=== PATIENT | male | born 1950 | race Caucasian/White ===

== ENCOUNTER 2022-07-13 13:09 | Inpatient (IN) ==
--- NOTE | 2022-07-13 13:18 | Emergency Department Note ---
HPI General Chief complaint: Weakness Stated complaint: Fall/Weakness Time Seen by Provider: 07/13/22 13:18 History of Present Illness HPI Narrative: Narrative: Patient is a 72-year-old male with no significant past medical history who presents to the emergency department due to worsening weakness. He states that for 3 days he has had runny nose and cough. His cough has been productive. He has developed some shortness of breath as well today. He states that this morning he began to feel very weak, and tried to sit down on the chair in his countertop. He states that he had a slow controlled fall. He denies pain in any location at this time. He states that he was on the floor for at least 3 hours before he could get a hold of EMS. He endorses decreased frequency of urination. He denies any other symptoms at this time. Related Data Home Medications Medication Instructions Recorded Confirmed cyclosporine 0.05 % eye drops in a 1 drp ophthalmic (eye) DAILY 07/10/21 07/14/22 dropperette (Restasis) Previous Rx's Medication Instructions Recorded tamsulosin 0.4 mg capsule 0.4 mg PO QDAY #30 caps 03/10/22 rizatriptan 10 mg disintegrating 10 mg PO .COMPLEX #12 tabs 03/29/22 tablet Allergies Allergy/AdvReac Type Severity Reaction Status Date / Time etodolac [From Lodine] Allergy Mild Rash Verified 07/14/22 06:47 crab Allergy Unknown Unknown Verified 07/13/22 13:23 iodine Allergy Unknown Unknown Verified 07/13/22 13:23 fluticasone [From Flonase] AdvReac Mild Flushing Verified 07/14/22 06:47 propranolol [From Inderal LA] AdvReac Mild Dizziness Verified 07/14/22 06:47 Review of Systems ROS ROS Narrative: Narrative: Constitutional: Reports weakness (Generalized); Denies fever Eyes: Denies eye pain or vision change ENT ED: Reports rhinorrhea; Denies throat pain or hearing loss Cardiovascular: Denies chest pain, dyspnea on exertion, orthopnea or edema Respiratory: Reports shortness of breath and cough Gastrointestinal: Denies abdominal pain, nausea, vomiting, diarrhea, constipation, hematochezia or melena Genitourinary: Denies dysuria, frequency or hematuria Musculoskeletal: Denies back pain or myalgia Integumentary: Denies rash or lesions Neurological: Reports weakness (Generalized); Denies headache, numbness, confusion, abnormal gait or dizziness Endocrine: Denies fatigue or polyuria Hematological/Lymphatic: Denies easy bleeding or easy bruising [facility] Narrative Patient History Narrative: Narrative: Medical/Surgical/Family History All Active Problems (Updated 07/22/22 @ 07:44 by Pelon Tapia MD) Rhabdomyolysis (Acute) Weakness (Acute) COVID-19 (Acute) Rhabdomyolysis (Acute) COVID-19 (Acute) Hearing loss (Chronic) Medicare annual wellness visit, subsequent (Acute) Left lateral epicondylitis (Acute) Osteoarthritis (Chronic) Encounter for Health Maintenance Examination in Adult (Chronic) H/O colonoscopy (Chronic 04/26/14) History of tobacco use (Chronic 05/06/14) Chronic rhinitis (Chronic) Primary generalized (osteo)arthritis (Chronic) Common migraine (Chronic) Low back pain (Chronic) History of colonic polyps (Chronic 04/26/14) Cardiac dysrhythmia (Chronic) Medical History Cardiac dysrhythmia At 09/2007 CPX, resting EKG--slight ST depression & inverted T-wave in limb lead 3. Limb lead 2 and AVF normal; incomplete RBBB. ETT 12/14/07--ENRIKE -10%. No definite ST changes--read as normal standard ETT. 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 Encounter for Health Maintenance Examination in Adult Hearing loss History of colonic polyps (04/26/14) 04/26/2014-TA; 09/2005 Colonoscopy--Dr. Patel--adenomatous polyp. Plan recheck at 2010 5 yr. point History of tobacco use (05/06/14) Low back pain on background of previous lumbar comp fx--see CPX for hx; Traumatic L2 compression fracture 01/1995. Review by Dr. Esposito 11/2006. 12/2010--Acute onset lower thoracic, upper lumbar pack pain--still off work as of 02/2011. Medicare annual wellness visit, initial Medicare annual wellness visit, subsequent Osteoarthritis Primary generalized (osteo)arthritis 04/2004 Left knee pain, x-ray showing mild osteoaarthritis Retinal detachment 2020, previous repairs as well. Surgical History H/O colonoscopy (04/26/14) 07/04/19 - (2) TA 04/26/2014 - TA H/O eye surgery retinal detachment 2018 and 2020 laser surgery 2012 Family History Father Dementia, Onset Age: 79 Heart failure Acute myocardial infarction, Onset Age: 71 Disorder of thyroid Sister Hodgkin lymphoma Mother Dementia Social History Smoking Status: Former smoker Alcohol Intake Frequency: a few times a week Substance Use: does not use Exam Narrative Narrative: Narrative: General General appearance: Present alert and in no apparent distress; Absent anxious, appears intoxicated or sleepy Head Head: Present atraumatic and normocephalic Eye Eye: Present PERRL and EOMI; Absent scleral icterus or nystagmus ENT ENT: Present mucous membranes moist and nasal congestion Neck Neck: Present full ROM and trachea midline Chest Chest: Present normal inspection and symmetric chest wall rise Respiratory Respiratory: Present normal lung sounds bilaterally; Absent respiratory distress or accessory muscle use Cardiovascular Cardiovascular: Present regular rate, normal rhythm and normal heart sounds Adbominal Abdominal: Present soft and normal bowel sounds; Absent distention or tenderness Extremities Extremities: Present normal inspection and full ROM Back Back: Present normal inspection and full ROM Neurological Neurological: Present alert, oriented X3, CN II-XII intact, normal gait and reflexes normal; Absent motor sensory deficit Psychiatric Psychiatric: Present normal affect and normal mood Skin Skin: Present warm (WNL), dry and normal color Course Vital Signs Vital signs: Vital Signs Temperature 99.9 F H 07/13/22 13:10 Pulse Rate 103 H 07/13/22 13:10 Respiratory Rate 22 07/13/22 13:10 Blood Pressure 145/101 07/13/22 13:10 Pulse Oximetry (%) 93 07/13/22 13:10 Oxygen Delivery Method Room Air 07/13/22 13:10 Temperature 98.1 F 07/20/22 13:45 Pulse Rate 87 07/20/22 13:45 Respiratory Rate 18 07/20/22 13:45 Blood Pressure 119/74 07/20/22 13:45 Pulse Oximetry (%) 90 07/20/22 13:45 Oxygen Delivery Method Room Air 07/20/22 13:45 Oxygen Flow Rate (L/min) 0 07/20/22 13:45 MDM MDM Narrative Medical decision making narrative: Narrative: Patient is a 72-year-old male with no significant past medical history who presents to the emergency department due to worsening weakness. Differential diagnoses for patient's weakness include his known covid, uti, electrolyte abnormality, anemia, and dehydrations. There is some concern for rhabdomyolysis also due to length of time that patient was on the ground. Patient is beginning to feel better with fluids. Patient's kidney function is reassuring. Electrolytes are reassuring. CK is elevated at 8924. I have called and spoken to Dr. Suárez given concern for rhabdomyolysis and he has agreed to see and evaluate patient for admission. Lab Data 07/16/22 06:21 07/18/22 10:25 Labs: Lab Results 07/13/22 07/13/22 07/13/22 Range/Units 14:42 14:42 14:46 WBC 10.8 (4.5-11.0) K/mcL RBC 5.01 (4.63-6.08) M/mcL Hgb 14.9 (13.7-17.5) g/dL Hct 44.5 (40.1-51.0) % POC Hct 44.0 (41-55) MCV 88.8 (80.0-100.0) fL MCH 29.7 (26.0-34.0) pg MCHC 33.5 (31.0-36.0) g/dL RDW 13.4 (11.5-14.5) % Plt Count 180 (140-440) K/mcL MPV 9.3 (8.8-12.5) fL Immature Gran % (Auto) 0.5 (0.0-0.5) % Neut % (Auto) 83.3 H (38.0-78.0) % Lymph % (Auto) 4.6 L (15.5-49.0) % [place] % (Auto) 11.3 (1.0-12.0) % Eos % (Auto) 0 (0.0-7.0) % Baso % (Auto) 0.3 (0.0-2.0) % Lymph # (Auto) 0.50 L (1.50-4.80) K/mcL [place] # (Auto) 1.23 H (0.10-0.90) K/mcL Eos # (Auto) 0 (0.00-0.70) K/mcL Baso # (Auto) 0.03 (0.00-0.30) K/mcL Immature Gran # 0.05 (0.00-0.05) K/mcl Absolute Neutrophils 9.03 H (1.80-8.00) K/mcL POC Sodium 137 (133-145) POC Potassium 3.7 (3.3-5.1) POC Chloride 106 (96-108) POC Total CO2 21.0 L (22-30) POC BUN 11 (6-20) POC Creatinine 1.0 (0.6-1.2) POC Glucose 115 H (70-105) POC WB Ioniz Calcium 1.05 L (1.16-1.32) Total Creatine Kinase 8924 H (24-195) U/L ED POC Tests ED POC Tests: SARAHY - Influenza A Negative SARAHY - Influenza B Negative SARAHY - SARS Antigen Positive Discharge Plan Patient/Caregiver Discharge Instructions Pt seen by RADIATION ONCOLOGY NURSE/PA only: No Clinical Impression: Rhabdomyolysis, Weakness, COVID-19 Activity: increase activity as tolerated Patient Disposition: Xfer As Inpt ([facility]) Condition: Fair Discharge Date/Time: 07/13/22 20:52
[2022-07-13] MEDS ORDERED: 0.9 % SODIUM CHLORIDE 500 ML IV ONE ×2 (13:46→14:51)
[2022-07-13 14:49] LABS: POC Calcium, Ionized 1.05 (1.16-1.32); POC Potassium 3.7 (3.3-5.1)
[2022-07-13 15:40] LABS: Basophils # (Auto) 0.03 K/mcL (0.00-0.30); Basophils % (Auto) 0.3 % (0.0-2.0); Eosinophils # (Auto) 0 K/mcL (0.00-0.70); Eosinophils % (Auto) 0 % (0.0-7.0); Hematocrit 44.5 % (40.1-51.0); Hemoglobin 14.9 g/dL (13.7-17.5); Lymphocytes % (Auto) 4.6 % (15.5-49.0); Mean Cell Volume 88.8 fL (80.0-100.0); Mean Corpuscular HGB Conc 33.5 g/dL (31.0-36.0); Mean Platelet Volume 9.3 fL (8.8-12.5); Monocytes # (Auto) 1.23 K/mcL (0.10-0.90); Monocytes % (Auto) 11.3 % (1.0-12.0); Neutrophils % (Auto) 83.3 % (38.0-78.0); Platelet Count 180 K/mcL (140-440); RBC 5.01 M/mcL (4.63-6.08); Red Cell Distribution Width 13.4 % (11.5-14.5); WBC 10.8 K/mcL (4.5-11.0)
[2022-07-13 16:06] LABS: Creatine Kinase 8924 U/L (24-195)
[2022-07-13] MEDS ORDERED: LACTATED RINGERS 1,000 ML IV ONE (16:11)
[2022-07-13] MEDS ORDERED: ACETAMINOPHEN 500 MG TABLET PO ONE (18:24)
--- NOTE | 2022-07-13 18:33 | Internal Med History&Physical ---
HPI History of Present Illness Patient information: Note initiated : 07/13/22 at 6:31 pm Service Date, if different from initiated Date: [] Patient: Ottoniel Arriaga 72 y/o M admitted on for Fall/Weakness. Chief Complaint: [] Chief complaint: found down History of present illness: Mr. Arriaga is a 72 year old M with BPPV. He arose early on the morning of the day of admission and attempted to sit in a kitchen chair but fell out of the chair. He attempted to get back in the chair and repeatedly fell off. He also reports a sore throat. He remained on the floor for several hours. Workup in the ER was notable for CPK 8,000. Renal function normal. However, COVID is POSITIVE. He is too weak to care for himself and lives alone. Admission was requested. Constitutional Constitutional: Present as per HPI EENT Eyes: Present as per HPI Cardiovascular Cardiovascular: Present as per HPI Respiratory Respiratory: Present as per HPI Gastrointestinal Gastrointestinal: Present as per HPI Genitourinary Genitourinary: as per HPI Musculoskeletal Musculoskeletal: Present as per HPI Integumentary Integumentary: Present as per HPI Neurological Neurological: Present as per HPI Endocrine Endocrine: Present as per HPI PFSH PFSH All Active Problems (Updated 07/13/22 @ 18:37 by Jam Suárez MD) Rhabdomyolysis (Acute) COVID-19 (Acute) Hearing loss (Chronic) Medicare annual wellness visit, subsequent (Acute) Left lateral epicondylitis (Acute) Osteoarthritis (Chronic) Encounter for Health Maintenance Examination in Adult (Chronic) H/O colonoscopy (Chronic 04/26/14) History of tobacco use (Chronic 05/06/14) Chronic rhinitis (Chronic) Primary generalized (osteo)arthritis (Chronic) Common migraine (Chronic) Low back pain (Chronic) History of colonic polyps (Chronic 04/26/14) Cardiac dysrhythmia (Chronic) Medical History Cardiac dysrhythmia At 09/2007 CPX, resting EKG--slight ST depression & inverted T-wave in limb lead 3. Limb lead 2 and AVF normal; incomplete RBBB. ETT 12/14/07--ENRIKE -10%. No definite ST changes--read as normal standard ETT. 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 Encounter for Health Maintenance Examination in Adult Hearing loss History of colonic polyps (04/26/14) 04/26/2014-TA; 09/2005 Colonoscopy--Dr. Patel--adenomatous polyp. Plan recheck at 2010 5 yr. point History of tobacco use (05/06/14) Low back pain on background of previous lumbar comp fx--see Feb. CPX for hx; Traumatic L2 compression fracture 01/1995. Review by Dr. Esposito 11/2006. 12/2010--Acute onset lower thoracic, upper lumbar pack pain--still off work as of 02/2011. Medicare annual wellness visit, initial Medicare annual wellness visit, subsequent Osteoarthritis Primary generalized (osteo)arthritis 04/2004 Left knee pain, x-ray showing mild osteoaarthritis Retinal detachment 2020, previous repairs as well. Surgical History H/O colonoscopy (04/26/14) 07/04/19 - (2) TA 04/26/2014 - TA H/O eye surgery retinal detachment 2018 and 2020 laser surgery 2012 Family History Father Dementia, Onset Age: 79 Heart failure Acute myocardial infarction, Onset Age: 71 Disorder of thyroid Sister Hodgkin lymphoma Mother Dementia Social History household members: alone housing: house lives independently: Yes marital status: occupational status: retired smoking status: Former smoker quit date: 05/16/08 alcohol intake frequency: a few times a week substance use type: does not use MEDS/ALLERGIES Home Medications and Allergies Home Medications Medication Instructions Recorded Confirmed Type cyclosporine 0.05 % eye drops in a drp ophthalmic (eye) 07/10/21 04/21/22 History dropperette (Restasis) tamsulosin 0.4 mg capsule 0.4 mg PO QDAY #30 caps 03/10/22 04/21/22 Rx rizatriptan 10 mg disintegrating 10 mg PO .COMPLEX #12 tabs 03/29/22 04/21/22 Rx tablet atorvastatin 20 mg tablet 20 mg PO QDAY #90 tabs 04/12/22 04/21/22 Rx Allergies Allergy/AdvReac Type Severity Reaction Status Date / Time crab Allergy Unknown Unknown Verified 07/13/22 13:23 etodolac [From Lodine] Allergy Unknown Rash Verified 07/13/22 13:23 iodine Allergy Unknown Unknown Verified 07/13/22 13:23 fluticasone [From Flonase] AdvReac Unknown Flushing Verified 07/13/22 13:23 propranolol [From Inderal LA] AdvReac Unknown Dizziness Verified 07/13/22 13:23 EXAM Constitutional Vitals: Temp Pulse Resp BP Pulse Ox O2 Del Method 102.6 F H 91 H 25 H 148/84 91 Room Air 07/13/22 17:56 07/13/22 18:16 07/13/22 18:16 07/13/22 18:16 07/13/22 18:16 07/13/22 13:10 General appearance: no acute distress Head Head exam: Present atraumatic, normal inspection and normocephalic ENT ENT exam: Present mucous membranes moist Respiratory Respiratory exam: Present normal respiratory exam and CTAB GI/Abdominal GI/Abdominal exam: Present normal bowel sounds and soft; Absent distended Extremities Exam Extremities exam: Absent pedal edema DATA Data Completed and Pending Labs: Labs from last 24 hours 07/13/22 07/13/22 07/13/22 14:46 14:42 14:42 WBC 10.8 RBC 5.01 Hgb 14.9 Hct 44.5 POC Hct 44.0 MCV 88.8 MCH 29.7 MCHC 33.5 RDW 13.4 Plt Count 180 MPV 9.3 Immature Gran % (Auto) 0.5 Neut % (Auto) 83.3 H Lymph % (Auto) 4.6 L [place] % (Auto) 11.3 Eos % (Auto) 0 Baso % (Auto) 0.3 Lymph # (Auto) 0.50 L [place] # (Auto) 1.23 H Eos # (Auto) 0 Baso # (Auto) 0.03 Immature Gran # 0.05 Absolute Neutrophils 9.03 H POC Sodium 137 POC Potassium 3.7 POC Chloride 106 POC Total CO2 21.0 L POC BUN 11 POC Creatinine 1.0 POC Glucose 115 H POC WB Ioniz Calcium 1.05 L Total Creatine Kinase 8924 H A/P Assessment and plan (1) COVID-19: Assessment and plan: - supportive care - patient unable to care for self Status: Acute (2) Rhabdomyolysis: Assessment and plan: - moderate CPK elevation with normal renal function - hydrate - hold statin Status: Acute Time Spent With Patient Time: Total time spent is greater than 50% in coordination of care (as documented) at patient's floor/unit and/or counseling patient: Initial: Total time with patient: 40 - 54 minutes
[2022-07-13] MEDS ORDERED: ONDANSETRON 4 MG/2 ML VIAL IV PRN (20:56)
[2022-07-13] MEDS: DOCUSATE SODIUM 100 MG CAPSULE PO SCH (22:37)
[2022-07-13] MEDS: SENNOSIDES 1 TABLET PO SCH (22:37)
[2022-07-13] MEDS: 0.9 % SODIUM CHLORIDE 10 ML SYRINGE IV SCH (22:38)
[2022-07-13] MEDS: 0.9 % SODIUM CHLORIDE 1,000 ML IV SCH (22:40)
[2022-07-14] MEDS: ACETAMINOPHEN 325 MG TABLET PO PRN ×2 (04:34→13:14)
[2022-07-14] MEDS: 0.9 % SODIUM CHLORIDE 10 ML SYRINGE IV SCH ×3 (05:50→21:35)
[2022-07-14] MEDS: TAMSULOSIN 0.4 MG CAPSULE PO SCH (08:02)
[2022-07-14] MEDS: ENOXAPARIN 40 MG/0.4 ML SYRINGE SQ SCH (08:02)
[2022-07-14] MEDS: DOCUSATE SODIUM 100 MG CAPSULE PO SCH ×2 (08:02→20:34)
[2022-07-14 08:03] LABS: Blood Urea Nitrogen 11 mg/dL (8-23); Calcium 8.2 mg/dL (8.6-10.4); Carbon Dioxide 20 mmol/L (22-30); Chloride 105 mmol/L (96-108); Glomerular Filtration Rate 88; Glucose 96 mg/dL (70-105); Phosphorous 1.8 mg/dL (2.5-4.5)
[2022-07-14 08:10] LABS: Basophils # (Auto) 0.03 K/mcL (0.00-0.30); Basophils % (Auto) 0.3 % (0.0-2.0); Eosinophils # (Auto) 0.02 K/mcL (0.00-0.70); Eosinophils % (Auto) 0.2 % (0.0-7.0); Hematocrit 43.4 % (40.1-51.0); Hemoglobin 14.2 g/dL (13.7-17.5); Lymphocytes # (Auto) 1.49 K/mcL (1.50-4.80); Lymphocytes % (Auto) 14.8 % (15.5-49.0); Mean Cell Volume 88.9 fL (80.0-100.0); Mean Corpuscular HGB Conc 32.7 g/dL (31.0-36.0); Mean Platelet Volume 9.3 fL (8.8-12.5); Monocytes # (Auto) 1.59 K/mcL (0.10-0.90); Monocytes % (Auto) 15.8 % (1.0-12.0); Neutrophils % (Auto) 68.6 % (38.0-78.0); Platelet Count 186 K/mcL (140-440); RBC 4.88 M/mcL (4.63-6.08); Red Cell Distribution Width 13.7 % (11.5-14.5); WBC 10.1 K/mcL (4.5-11.0)
[2022-07-14] MEDS: 0.9 % SODIUM CHLORIDE 1,000 ML IV SCH ×4 (08:11→21:52)
[2022-07-14 10:49] LABS: Creatine Kinase > 20000 U/L (24-195)
--- NOTE | 2022-07-14 11:05 | Internal Med Progress Note ---
SUBJECTIVE Subjective Patient information: Note initiated : 07/14/22 at 11:02 am Service Date, if different from initiated Date: [] Patient: Ottoniel Arriaga 72 y/o M admitted on 07/13/22 for Fall/Weakness. Chief Complaint: [] Interval history: Mr. Arriaga is a 72 year old M with BPPV. He arose early on the morning of the day of admission and attempted to sit in a kitchen chair but fell out of the chair. He attempted to get back in the chair and repeatedly fell off. He also reports a sore throat. He remained on the floor for several hours. Workup in the ER was notable for CPK 8,000. Renal function normal. However, COVID is POSITIVE. He is too weak to care for himself and lives alone. Admission was requested. Jul 14, CPK reported as > 20,000. I have asked for a dilution measure to better quantify the actual number. IVF rate has been increased. Pt denies limb pain or numbness. Constitutional Vitals: Vital Signs Temp Pulse Resp BP Pulse Ox O2 Del Method 98.9 F 73 18 118/82 92 Room Air 07/14/22 08:00 07/14/22 08:00 07/14/22 08:00 07/14/22 08:00 07/14/22 08:00 07/14/22 08:00 Period Temp Pulse Resp BP Sys/Allen Pulse Ox O2 Del Method O2 Flow Rate Last 24 Hr 98.1 F-102.6 F 73-103 17-33 112-167/70-103 90-96 Room Air-Room Air Intake and Output 07/13/22 07/14/22 07/14/22 19:59 03:59 11:59 Intake Total 700 1000 1912 Output Total 925 750 Balance 514 89 0153 Weight 104.326 kg 106.651 kg Intake & Output: Intake & Output 07/13/22 07/14/22 07/14/22 19:59 03:59 11:59 Intake Total 700 1000 1912 Output Total 925 750 Balance 478 26 6403 Weight 104.326 kg 106.651 kg Intake: IV 700 1000 952 Sodium Chloride 0.9% 1,000 ml @ 952 100 mls/hr IV .Q10H [facility] Rx#: [id number] Sodium Chloride 0.9% 500 ml @ 700 Wide Open IV BOLUS ONE Rx#: [id number] Lactated Ringers 1,000 ml @ 1000 Wide Open IV BOLUS ONE Rx#: [id number] Oral 960 Output: Void Amount 925 750 Other: Meal Breakfast Percent of Meal Consumed 75% Feeding Ability Assist with Tray Set Up Urine Appearance Clear Clear Urine Color Yellow Yellow Urine Odor Normal Normal General appearance: no acute distress Head Head exam: Present atraumatic and normal inspection ENT ENT exam: Present mucous membranes moist Respiratory Respiratory exam: Present normal respiratory exam and CTAB Cardiovascular Cardiovascular exam: Present normal rate and rhythm GI/Abdominal GI/Abdominal exam: Present normal bowel sounds and soft Neurological Exam Neurological exam: Present CN II-XII intact and oriented X3 OBJ DATA Labs 07/14/22 05:12 07/14/22 05:12 Labs: Abnormal Lab Results 07/14/22 07/14/22 07/13/22 05:12 05:12 14:46 Neut % (Auto) Lymph % (Auto) 14.8 L [place] % (Auto) 15.8 H Lymph # (Auto) 1.49 L [place] # (Auto) 1.59 H Absolute Neutrophils Carbon Dioxide 20 L POC Total CO2 21.0 L POC Glucose 115 H Calcium 8.2 L POC WB Ioniz Calcium 1.05 L Phosphorus 1.8 L Total Creatine Kinase > 68017 H* 07/13/22 07/13/22 14:42 14:42 Neut % (Auto) 83.3 H Lymph % (Auto) 4.6 L [place] % (Auto) Lymph # (Auto) 0.50 L [place] # (Auto) 1.23 H Absolute Neutrophils 9.03 H Carbon Dioxide POC Total CO2 POC Glucose Calcium POC WB Ioniz Calcium Phosphorus Total Creatine Kinase 8924 H Meds: Medications Acetaminophen (Acetaminophen 325 Mg Tablet) 650 mg PO Q6HP PRN; Protocol PRN Reason: Per Pain Protocol/Fever > 101 Last Admin: 07/14/22 04:34 Dose: 650 mg Docusate Sodium (Docusate Sodium 100 Mg Capsule) 100 mg PO BID [facility] Last Admin: 07/14/22 08:02 Dose: 100 mg Enoxaparin Sodium (Enoxaparin 40 Mg/0.4 Ml Syringe) 40 mg SQ DAILY [facility] Last Admin: 07/14/22 08:02 Dose: 40 mg Sodium Chloride (Sodium Chloride 0.9%) 1,000 mls @ 166 mls/hr IV .Q6H2M [facility] Ondansetron HCl (Ondansetron 4 Mg/2 Ml Vial) 4 mg IV Q6HP PRN PRN Reason: Nausea And Vomiting Potassium/Phosphorus/Sodium (Neutra Phos 1 Packet) 1 packet PO QID [facility] Stop: 07/15/22 13:01 Senna (Sennosides 1 Tablet) 2 tab PO HS [facility] Last Admin: 07/13/22 22:37 Dose: 2 tab Sodium Chloride (0.9 % Sodium Chloride 10 Ml Syringe) 10 ml IV Q8 [facility] Last Admin: 07/14/22 05:50 Dose: Not Given Tamsulosin HCl (Tamsulosin 0.4 Mg Capsule) 0.4 mg PO QDAY [facility] Last Admin: 07/14/22 08:02 Dose: 0.4 mg A/P Assessment and plan (1) COVID-19: Assessment and plan: - supportive care - pt unable to care for self, lives alone Status: Acute (2) Rhabdomyolysis: Assessment and plan: - repat CPK this AM is > 20,000 vs 8,000 last night - I have asked the lab to perform a dilution to further quantify - increase IVF rate - renal function normal Status: Acute Time Spent With Patient Time: Total time spent is greater than 50% in coordination of care (as documented) at patient's floor/unit and/or counseling patient: QUALITY Stroke Symptom Onset Unknown: No VTE Deep Vein Thrombosis/Pulmonary Embolism Present on Admission: No
[2022-07-14] MEDS: NEUTRA PHOS 1 PACKET PO SCH ×4 (11:19→20:34)
--- NOTE | 2022-07-14 14:23 | Internal Med Progress Note ---
SUBJECTIVE Subjective Patient information: Note initiated : 07/14/22 at 2:15 pm Service Date, if different from initiated Date: [] Patient: Ottoniel Arriaga 72 y/o M admitted on 07/13/22 for Fall/Weakness. Chief Complaint: [] Interval history: Mr. Arriaga is a 72 year old M with BPPV. He arose early on the morning of the day of admission and attempted to sit in a kitchen chair but fell out of the chair. He attempted to get back in the chair and repeatedly fell off. He also reports a sore throat. He remained on the floor for several hours. Workup in the ER was notable for CPK 8,000. Renal function normal. However, COVID is POSITIVE. He is too weak to care for himself and lives alone. Admission was requested. Jul 14, CPK reported as > 20,000. I have asked for a dilution measure to better quantify the actual number. IVF rate has been increased. Pt denies limb pain or numbness. 3/2 Review of Systems: denies headache/fever/chills/nausea/vomiting/chest or abdominal pain/cough/dyspnea/diarrhea. Otherwise see above. PHYSICAL EXAM: General: Alert, Awake, No acute Distress, obese Eyes/N/T: EOMI, no scleral icterus, Head/Neck: neck supple, CV: RRR, No murmurs, Pulm: Clear b/l, no wheezing/rhonchi/rales, no respiratory distress Abd: soft, nontender, +BS x4 Ext: no clubbing/cyanosis/edema, nontender Neuro: Alert, no focal deficits, moves all extremities, sensations intact b/l upper/lower Psychiatric: Skin: warm/dry, normal color Constitutional Vitals: Vital Signs Temp Pulse Resp BP Pulse Ox O2 Del Method 99.0 F 80 18 128/78 93 Room Air 07/14/22 11:23 07/14/22 11:23 07/14/22 11:23 07/14/22 11:23 07/14/22 11:23 07/14/22 11:23 Period Temp Pulse Resp BP Sys/Allen Pulse Ox O2 Del Method O2 Flow Rate Last 24 Hr 98.1 F-102.6 F 73-102 17-33 112-164/70-103 90-96 Room Air-Room Air Intake and Output 07/14/22 07/14/22 07/14/22 03:59 11:59 19:59 Intake Total 1000 2204 570 Output Total 925 750 Balance 75 1454 570 Weight 106.651 kg 106.651 kg Patient Weight 07/15/22 03:59 Weight 106.651 kg Intake & Output: Intake & Output 07/14/22 07/14/22 07/14/22 03:59 11:59 19:59 Intake Total 1000 2204 570 Output Total 925 750 Balance 75 1454 570 Weight 106.651 kg 106.651 kg Intake: IV 1000 1244 Sodium Chloride 0.9% 1,000 ml @ 1244 100 mls/hr IV .Q10H [facility] Rx#: [id number] Lactated Ringers 1,000 ml @ 1000 Wide Open IV [facility] Rx#: [id number] Oral 960 570 Output: Void Amount 925 750 Other: Meal Breakfast Lunch Percent of Meal Consumed 75% 100% Feeding Ability Assist with Tray Set Up Independent Urine Appearance Clear Clear Urine Color Yellow Yellow Urine Odor Normal Normal Stool Size Moderate Stool Color Brown Yellow Stool Consistency Loose # Voids 1 # Bowel Movements 1 OBJ DATA Labs 07/14/22 05:12 07/14/22 05:12 Labs: Abnormal Lab Results 07/14/22 07/14/22 07/13/22 05:12 05:12 14:46 Neut % (Auto) Lymph % (Auto) 14.8 L [place] % (Auto) 15.8 H Lymph # (Auto) 1.49 L [place] # (Auto) 1.59 H Absolute Neutrophils Carbon Dioxide 20 L POC Total CO2 21.0 L POC Glucose 115 H Calcium 8.2 L POC WB Ioniz Calcium 1.05 L Phosphorus 1.8 L Total Creatine Kinase > 57993 H* 07/13/22 07/13/22 14:42 14:42 Neut % (Auto) 83.3 H Lymph % (Auto) 4.6 L [place] % (Auto) Lymph # (Auto) 0.50 L [place] # (Auto) 1.23 H Absolute Neutrophils 9.03 H Carbon Dioxide POC Total CO2 POC Glucose Calcium POC WB Ioniz Calcium Phosphorus Total Creatine Kinase 8924 H Meds: Medications Acetaminophen (Acetaminophen 325 Mg Tablet) 650 mg PO Q6HP PRN; Protocol PRN Reason: Per Pain Protocol/Fever > 101 Last Admin: 07/14/22 13:14 Dose: 650 mg Docusate Sodium (Docusate Sodium 100 Mg Capsule) 100 mg PO BID [facility] Last Admin: 07/14/22 08:02 Dose: 100 mg Enoxaparin Sodium (Enoxaparin 40 Mg/0.4 Ml Syringe) 40 mg SQ DAILY [facility] Last Admin: 07/14/22 08:02 Dose: 40 mg Sodium Chloride (Sodium Chloride 0.9%) 1,000 mls @ 166 mls/hr IV .Q6H2M [facility] Last Admin: 07/14/22 11:07 Dose: Not Given Ondansetron HCl (Ondansetron 4 Mg/2 Ml Vial) 4 mg IV Q6HP PRN PRN Reason: Nausea And Vomiting Potassium/Phosphorus/Sodium (Neutra Phos 1 Packet) 1 packet PO QID [facility] Stop: 07/15/22 13:01 Last Admin: 07/14/22 12:31 Dose: Not Given Senna (Sennosides 1 Tablet) 2 tab PO HS [facility] Last Admin: 07/13/22 22:37 Dose: 2 tab Sodium Chloride (0.9 % Sodium Chloride 10 Ml Syringe) 10 ml IV Q8 [facility] Last Admin: 07/14/22 05:50 Dose: Not Given Tamsulosin HCl (Tamsulosin 0.4 Mg Capsule) 0.4 mg PO QDAY [facility] Last Admin: 07/14/22 08:02 Dose: 0.4 mg A/P Narrative A/P Narrative: Assessment and plan *COVID-19: on room air - supportive care - pt unable to care for self, lives alone *Rhabdomyolysis: - repat CPK this AM is > 20,000 vs 8,000 last night - I have asked the lab to perform a dilution to further quantify >>(36,200) - increase IVF rate - renal function normal -bicarb to alkalize the urine *Hypophosphatemia: Replete *Obese: BMI 31 *Generalized weakness/deconditioning: PT/OT *HLD: On statin *BPH: Continue tamsulosin *ppx: Time Spent With Patient Time: Total time spent is greater than 50% in coordination of care (as documented) at patient's floor/unit and/or counseling patient: QUALITY Stroke Symptom Onset Unknown: No VTE Deep Vein Thrombosis/Pulmonary Embolism Present on Admission: No
[2022-07-14] MEDS: SODIUM BICARBONATE 650 MG TABLET PO SCH ×2 (15:46→20:34)
[2022-07-14] MEDS: SENNOSIDES 1 TABLET PO SCH (20:34)
[2022-07-15] MEDS: ACETAMINOPHEN 325 MG TABLET PO PRN ×2 (03:08→21:16)
[2022-07-15] MEDS: 0.9 % SODIUM CHLORIDE 1,000 ML IV SCH ×3 (03:24→17:45)
[2022-07-15] MEDS: 0.9 % SODIUM CHLORIDE 10 ML SYRINGE IV SCH ×3 (05:37→21:17)
--- NOTE | 2022-07-15 06:44 | EKG ---
[facility] Test Date: 2022-07-13 Pat Name: Ottoniel Arriaga Department: MEDR Room: 125 Gender: Male Group [employer] Machine: HS : [id number] Requested By: Pelon Tapia Order Number: [id number] Reading MD: Gilbert Lujan Measurements Intervals [place] Rate: 102 P: 49 [place]: 157 QRS: 18 QRSD: 103 T: 8 QT: 357 QTc: 464 Interpretive Statements Sinus tachycardia RSR' in V1 or V2, right VCD or RVH Electronically Signed On 07-15-2022 6:44:21 PST by Gilbert Lujan /store/[email or web address]/[id number]
[2022-07-15 07:51] LABS: ALT/SGPT 197 U/L (<40); AST/SGOT 759 U/L (<40); Albumin 3.3 gm/dL (3.2-5.2); Albumin/Globulin Ratio 1.3 (1.0-2.3); Alkaline Phosphatase 60 U/L (39-117); Bilirubin,Direct < 0.2 mg/dL (0-0.3); Bilirubin,Total 0.5 mg/dL (0.1-1.0); Blood Urea Nitrogen 7 mg/dL (8-23); Calcium 7.5 mg/dL (8.6-10.4); Carbon Dioxide 22 mmol/L (22-30); Chloride 106 mmol/L (96-108); Globulin 2.5 gm/dL (2.2-3.7); Glomerular Filtration Rate 93; Glucose 94 mg/dL (70-105); Lactate Dehydrogenase 1001 U/L (135-225); Phosphorous 2.1 mg/dL (2.5-4.5); Triglycerides 80 mg/dL (<150)
--- NOTE | 2022-07-15 08:10 | Internal Med Progress Note ---
SUBJECTIVE Subjective Patient information: Note initiated : 07/15/22 at 8:07 am Service Date, if different from initiated Date: [] Patient: Ottoniel Arriaga 72 y/o M admitted on 07/13/22 for Fall/Weakness. Chief Complaint: [] Interval history: Mr. Arriaga is a 72 year old M with BPPV. He arose early on the morning of the day of admission and attempted to sit in a kitchen chair but fell out of the chair. He attempted to get back in the chair and repeatedly fell off. He also reports a sore throat. He remained on the floor for several hours. Workup in the ER was notable for CPK 8,000. Renal function normal. However, COVID is POSITIVE. He is too weak to care for himself and lives alone. Admission was requested. Jul 14, CPK reported as > 20,000. I have asked for a dilution measure to better quantify the actual number. IVF rate has been increased. Pt denies limb pain or numbness. /2 Patient complains of poor sleep. Has a headache. Hypophosphatemia present. Hypocalcemia. Transaminitis #. Elevated CPK greater than 20,000. We will ask for delusional from lab. Continue IV fluids and continue monitoring close urine output. Review of Systems: denies headache/fever/chills/nausea/vomiting/chest or abdominal pain/cough/dyspnea/diarrhea. Otherwise see above. PHYSICAL EXAM: General: Alert, Awake, No acute Distress, obese Eyes/N/T: EOMI, no scleral icterus, Head/Neck: neck supple, CV: RRR, No murmurs, Pulm: Clear b/l, no wheezing/rhonchi/rales, no respiratory distress Abd: soft, nontender, +BS x4 Ext: no clubbing/cyanosis/edema, nontender Neuro: Alert, no focal deficits, moves all extremities, sensations intact b/l up per/lower Psychiatric: Skin: warm/dry, normal color Constitutional Vitals: Vital Signs Temp Pulse Resp BP Pulse Ox O2 Del Method 98.5 F 78 22 117/73 93 Room Air 07/15/22 03:53 07/15/22 02:59 07/15/22 02:59 07/15/22 02:59 07/15/22 02:59 07/15/22 02:59 Period Temp Pulse Resp BP Sys/Allen Pulse Ox O2 Del Method O2 Flow Rate Last 24 Hr 98.5 F-101.2 F 78-94 18-22 117-128/68-86 91-96 Room Air-Room Air Intake and Output 07/14/22 07/15/22 07/15/22 19:59 03:59 11:59 Intake Total 1278 2719 Output Total 200 1275 1026 Balance 1078 1444 -1026 Weight 106.651 kg 108.04 kg Intake & Output: Intake & Output 07/14/22 07/15/22 07/15/22 19:59 03:59 11:59 Intake Total 1278 2719 Output Total 200 1275 1026 Balance 1078 1444 -1026 Weight 106.651 kg 108.04 kg Intake: IV 708 1919 Sodium Chloride 0.9% 1,000 ml @ 708 1919 166 mls/hr IV .Q6H2M [facility] Rx#: [id number] Oral 570 800 Output: Void Amount 200 1275 1025 # of times incontinent of urine 1 Other: Meal Lunch Percent of Meal Consumed 100% Feeding Ability Independent Urine Appearance Clear Clear Urine Color Yellow Yellow Urine Odor Normal Stool Size Moderate Stool Color Brown Yellow Stool Consistency Loose # Voids 1 # Bowel Movements 1 OBJ DATA Labs 07/14/22 05:12 07/15/22 06:16 Labs: Abnormal Lab Results 07/15/22 07/14/22 07/14/22 06:16 05:12 05:12 Neut % (Auto) Lymph % (Auto) 14.8 L [place] % (Auto) 15.8 H Lymph # (Auto) 1.49 L [place] # (Auto) 1.59 H Absolute Neutrophils Carbon Dioxide 20 L POC Total CO2 BUN 7 L POC Glucose Calcium 7.5 L 8.2 L POC WB Ioniz Calcium Phosphorus 2.1 L 1.8 L AST 759 H ALT 197 H Lactate Dehydrogenase 1001 H Total Creatine Kinase > 66216 H* Total Protein 5.8 L 07/13/22 07/13/22 07/13/22 14:46 14:42 14:42 Neut % (Auto) 83.3 H Lymph % (Auto) 4.6 L [place] % (Auto) Lymph # (Auto) 0.50 L [place] # (Auto) 1.23 H Absolute Neutrophils 9.03 H Carbon Dioxide POC Total CO2 21.0 L BUN POC Glucose 115 H Calcium POC WB Ioniz Calcium 1.05 L Phosphorus AST ALT Lactate Dehydrogenase Total Creatine Kinase 8924 H Total Protein Meds: Medications Acetaminophen (Acetaminophen 325 Mg Tablet) 650 mg PO Q6HP PRN; Protocol PRN Reason: Per Pain Protocol/Fever > 101 Last Admin: 07/15/22 03:08 Dose: 650 mg Docusate Sodium (Docusate Sodium 100 Mg Capsule) 100 mg PO BID [facility] Last Admin: 07/14/22 20:34 Dose: Not Given Enoxaparin Sodium (Enoxaparin 40 Mg/0.4 Ml Syringe) 40 mg SQ DAILY [facility] Last Admin: 07/14/22 08:02 Dose: 40 mg Sodium Chloride (Sodium Chloride 0.9%) 1,000 mls @ 166 mls/hr IV .Q6H2M [facility] Last Admin: 07/15/22 03:24 Dose: 166 mls/hr Ondansetron HCl (Ondansetron 4 Mg/2 Ml Vial) 4 mg IV Q6HP PRN PRN Reason: Nausea And Vomiting Potassium/Phosphorus/Sodium (Neutra Phos 1 Packet) 1 packet PO QID [facility] Stop: 07/15/22 13:01 Last Admin: 07/14/22 20:34 Dose: 1 packet Senna (Sennosides 1 Tablet) 2 tab PO HS [facility] Last Admin: 07/14/22 20:34 Dose: Not Given Sodium Bicarbonate (Sodium Bicarbonate 650 Mg Tablet) 1,300 mg PO TID [facility] Last Admin: 07/14/22 20:34 Dose: 1,300 mg Sodium Chloride (0.9 % Sodium Chloride 10 Ml Syringe) 10 ml IV Q8 [facility] Last Admin: 07/15/22 05:37 Dose: Not Given Tamsulosin HCl (Tamsulosin 0.4 Mg Capsule) 0.4 mg PO QDAY [facility] Last Admin: 07/14/22 08:02 Dose: 0.4 mg A/P Narrative A/P Narrative: Assessment and plan *COVID-19: on room air - supportive care - pt unable to care for self, lives alone -febrile o/n (obtain ua) *Generalized weakness/deconditioning/downtime on floor for hours: 2/2 above -PT/OT *Rhabdomyolysis: 2/2 above -cpk 8000> 20,000 (lab to perform a dilution to further quantify >> 36,200) > 31,900 -cont IVF, bicarb to alkalize the urine - renal function normal *Metabolic acidosis: 2/2 above *Transaminitis: 2/2 rhabdomyolysis, trend *Hypophosphatemia/Hypocalcemia: Replete cautiously and trend, may have rebound with recovery *Obese: BMI 31 *HLD: On statin for elevated lfts *BPH: Continue tamsulosin *ppx: lovenox Time Spent With Patient Time: Total time spent is greater than 50% in coordination of care (as documented) at patient's floor/unit and/or counseling patient: Subsequent: Total time with patient: 50 - 65 Minutes QUALITY Stroke Symptom Onset Unknown: No VTE Deep Vein Thrombosis/Pulmonary Embolism Present on Admission: No
[2022-07-15] MEDS ORDERED: PHOSPHORUS 250 MG TABLET PO ONE (08:14)
[2022-07-15] MEDS ORDERED: CALCIUM GLUCONATE 4.65 MEQ in DEXTROSE 5% IN WATER 50 ML IV ONE (08:17)
[2022-07-15] MEDS: NEUTRA PHOS 1 PACKET PO SCH ×2 (09:48→15:25)
[2022-07-15] MEDS: TAMSULOSIN 0.4 MG CAPSULE PO SCH (09:48)
[2022-07-15] MEDS: DOCUSATE SODIUM 100 MG CAPSULE PO SCH ×3 (09:48→21:17)
[2022-07-15] MEDS: ENOXAPARIN 40 MG/0.4 ML SYRINGE SQ SCH (09:48)
[2022-07-15] MEDS: SODIUM BICARBONATE 650 MG TABLET PO SCH ×3 (09:48→21:16)
[2022-07-15] MEDS: MELATONIN 3 MG TABLET PO SCH (21:16)
[2022-07-15] MEDS: SENNOSIDES 1 TABLET PO SCH (21:17)
[2022-07-16] MEDS: 0.9 % SODIUM CHLORIDE 1,000 ML IV SCH ×4 (00:17→20:55)
[2022-07-16 00:46] LABS: Appearance,Urine CLEAR (Clear); Bilirubin,Urine Negative (Negative); Color,Urine STRAW; Culture Indicated,Urine No; Glucose,Urine (UA) Negative (Negative); Ketones,Urine Negative (Negative); Leukocyte Esterase,Urine Negative /uL (Negative); Mucus,Urine FEW /hpf; Nitrate,Urine Negative (Negative); Protein,Urine Negative (Negative); Specific Gravity,Urine 1.008 (1.000-1.035); Urine RBC < 1 /hpf (0-3); Urine Squamous Epithelial Cell 0 /hpf (0-4); Urine WBC < 1 /hpf (0-4); Urobilinogen,Urine Negative
[2022-07-16] MEDS: 0.9 % SODIUM CHLORIDE 10 ML SYRINGE IV SCH ×3 (05:21→21:01)
[2022-07-16 07:44] LABS: Basophils # (Auto) 0.04 K/mcL (0.00-0.30); Basophils % (Auto) 0.7 % (0.0-2.0); Eosinophils # (Auto) 0.22 K/mcL (0.00-0.70); Eosinophils % (Auto) 3.8 % (0.0-7.0); Hematocrit 40.9 % (40.1-51.0); Lymphocytes # (Auto) 1.99 K/mcL (1.50-4.80); Lymphocytes % (Auto) 34.1 % (15.5-49.0); Mean Cell Volume 89.1 fL (80.0-100.0); Mean Corpuscular HGB Conc 31.8 g/dL (31.0-36.0); Mean Platelet Volume 9.2 fL (8.8-12.5); Monocytes # (Auto) 0.75 K/mcL (0.10-0.90); Monocytes % (Auto) 12.8 % (1.0-12.0); Neutrophils % (Auto) 48.4 % (38.0-78.0); Platelet Count 163 K/mcL (140-440); RBC 4.59 M/mcL (4.63-6.08); Red Cell Distribution Width 13.6 % (11.5-14.5); WBC 5.8 K/mcL (4.5-11.0)
[2022-07-16 08:18] LABS: ALT/SGPT 209 U/L (<40); AST/SGOT 630 U/L (<40); Albumin 3.1 gm/dL (3.2-5.2); Albumin/Globulin Ratio 1.3 (1.0-2.3); Alkaline Phosphatase 58 U/L (39-117); Bilirubin,Direct < 0.2 mg/dL (0-0.3); Bilirubin,Total 0.4 mg/dL (0.1-1.0); Blood Urea Nitrogen 7 mg/dL (8-23); Calcium 7.7 mg/dL (8.6-10.4); Carbon Dioxide 22 mmol/L (22-30); Chloride 106 mmol/L (96-108); Globulin 2.4 gm/dL (2.2-3.7); Glomerular Filtration Rate 93; Glucose 125 mg/dL (70-105); Lactate Dehydrogenase 813 U/L (135-225); Phosphorous 1.6 mg/dL (2.5-4.5); Triglycerides 84 mg/dL (<150); Uric Acid 2.9 mg/dL (2.5-8.0)
[2022-07-16] MEDS ORDERED: CALCIUM GLUCONATE 4.65 MEQ/10 ML VIAL IV ONE (08:20)
[2022-07-16] MEDS ORDERED: POTASSIUM PHOSPHATE 40 MEQ in DEXTROSE 5% IN WATER 500 ML IV SCH (08:21)
--- NOTE | 2022-07-16 08:21 | Internal Med Progress Note ---
SUBJECTIVE Subjective Patient information: Note initiated : 07/16/22 at 8:17 am Service Date, if different from initiated Date: [] Patient: Ottoniel Arriaga 72 y/o M admitted on 07/13/22 for Fall/Weakness. Chief Complaint: [] Interval history: Mr. Arriaga is a 72 year old M with BPPV. He arose early on the morning of the day of admission and attempted to sit in a kitchen chair but fell out of the chair. He attempted to get back in the chair and repeatedly fell off. He also reports a sore throat. He remained on the floor for several hours. Workup in the ER was notable for CPK 8,000. Renal function normal. However, COVID is POSITIVE. He is too weak to care for himself and lives alone. Admission was requested. Jul 14, CPK reported as > 20,000. I have asked for a dilution measure to better quantify the actual number. IVF rate has been increased. Pt denies limb pain or numbness. 07/15 Patient complains of poor sleep. Has a headache. Hypophosphatemia present. Hypocalcemia. Transaminitis #. Elevated CPK greater than 20,000. We will ask for delusional from lab. Continue IV fluids and continue monitoring close urine output. 3 Patient says he is feeling a little stronger each day. He was severely weak the first day. His urine is also dark the first day and it is lightening up. CPK still quite elevated. Continue IV hydration and monitoring. Yesterday's CPK was 31,000 down from 36,000 the previous day. Pending today's level. Urine pH at 6.0. Patient did have fevers yesterday morning. Review of Systems: denies headache/chills/nausea/vomiting/chest or abdominal pain/cough/dyspnea/diarrhea. Otherwise see above. PHYSICAL EXAM: General: Alert, Awake, No acute Distress, obese Eyes/N/T: EOMI, no scleral icterus, Head/Neck: neck supple, CV: RRR, No murmurs, Pulm: Clear b/l, no wheezing/rhonchi/rales, no respiratory distress Abd: soft, nontender, +BS x4 Ext: no clubbing/cyanosis/edema, nontender Neuro: Alert, no focal deficits, moves all extremities, sensations intact b/l upper/lower Psychiatric: Skin: warm/dry, normal color Constitutional Vitals: Vital Signs Temp Pulse Resp BP Pulse Ox O2 Del Method 99.2 F H 71 16 125/83 93 Room Air 07/16/22 07:01 07/16/22 03:33 07/16/22 07:01 07/16/22 07:01 07/16/22 07:01 07/16/22 07:01 Period Temp Pulse Resp BP Sys/Allen Pulse Ox O2 Del Method O2 Flow Rate Last 24 Hr 97.4 F-99.9 F 66-81 16-24 120-135/76-86 93-97 Room Air-Room Air Intake and Output 07/15/22 07/16/22 07/16/22 19:59 03:59 11:59 Intake Total 3280 1780 1000 Output Total 2575 600 1075 Balance 705 1180 -75 Weight 107.683 kg Intake & Output: Intake & Output 07/15/22 07/16/22 07/16/22 19:59 03:59 11:59 Intake Total 3280 1780 1000 Output Total 2575 600 1075 Balance 705 1180 -75 Weight 107.683 kg Intake: IV 2049 328 8336 Sodium Chloride 0.9% 1,000 ml @ 2541 173 4831 150 mls/hr IV .Q6H40M [facility] Rx#: [id number] Oral 2280 800 Output: Void Amount 2575 600 1075 Other: Meal Lunch Percent of Meal Consumed 100% Urine Appearance Clear Clear Clear Urine Color Yellow Yellow Pale OBJ DATA Labs 07/16/22 06:21 07/15/22 06:16 Labs: Abnormal Lab Results 07/16/22 07/16/22 07/15/22 06:21 00:27 06:16 RBC 4.59 L Hgb 13.0 L Neut % (Auto) Lymph % (Auto) [place] % (Auto) 12.8 H Lymph # (Auto) [place] # (Auto) Absolute Neutrophils Carbon Dioxide POC Total CO2 BUN 7 L POC Glucose Calcium 7.5 L POC WB Ioniz Calcium Phosphorus 2.1 L AST 759 H ALT 197 H Lactate Dehydrogenase 1001 H Total Creatine Kinase Total Protein 5.8 L Urine Mucus Few A 07/15/22 07/14/22 07/14/22 06:16 05:12 05:12 RBC Hgb Neut % (Auto) Lymph % (Auto) 14.8 L [place] % (Auto) 15.8 H Lymph # (Auto) 1.49 L [place] # (Auto) 1.59 H Absolute Neutrophils Carbon Dioxide 20 L POC Total CO2 BUN POC Glucose Calcium 8.2 L POC WB Ioniz Calcium Phosphorus 1.8 L AST ALT Lactate Dehydrogenase Total Creatine Kinase > 15625 H* > 63161 H* Total Protein Urine Mucus 07/13/22 07/13/22 07/13/22 14:46 14:42 14:42 RBC Hgb Neut % (Auto) 83.3 H Lymph % (Auto) 4.6 L [place] % (Auto) Lymph # (Auto) 0.50 L [place] # (Auto) 1.23 H Absolute Neutrophils 9.03 H Carbon Dioxide POC Total CO2 21.0 L BUN POC Glucose 115 H Calcium POC WB Ioniz Calcium 1.05 L Phosphorus AST ALT Lactate Dehydrogenase Total Creatine Kinase 8924 H Total Protein Urine Mucus Meds: Medications Acetaminophen (Acetaminophen 325 Mg Tablet) 650 mg PO Q6HP PRN; Protocol PRN Reason: Per Pain Protocol/Fever > 101 Last Admin: 07/15/22 21:16 Dose: 650 mg Diphenhydramine HCl (Diphenhydramine 25 Mg Capsule) 25 mg PO HSP PRN PRN Reason: Insomnia Docusate Sodium (Docusate Sodium 100 Mg Capsule) 100 mg PO BID [facility] Last Admin: 07/15/22 21:17 Dose: Not Given Enoxaparin Sodium (Enoxaparin 40 Mg/0.4 Ml Syringe) 40 mg SQ DAILY [facility] Last Admin: 07/15/22 09:48 Dose: 40 mg Sodium Chloride (Sodium Chloride 0.9%) 1,000 mls @ 150 mls/hr IV .Q6H40M [facility] Last Admin: 07/16/22 07:03 Dose: 150 mls/hr Melatonin (Melatonin 3 Mg Tablet) 3 mg PO QHS [facility] Last Admin: 07/15/22 21:16 Dose: 3 mg Ondansetron HCl (Ondansetron 4 Mg/2 Ml Vial) 4 mg IV Q6HP PRN PRN Reason: Nausea And Vomiting Senna (Sennosides 1 Tablet) 2 tab PO HS [facility] Last Admin: 07/15/22 21:17 Dose: Not Given Sodium Chloride (0.9 % Sodium Chloride 10 Ml Syringe) 10 ml IV Q8 [facility] Last Admin: 07/16/22 05:21 Dose: Not Given Tamsulosin HCl (Tamsulosin 0.4 Mg Capsule) 0.4 mg PO QDAY [facility] Last Admin: 07/15/22 09:48 Dose: 0.4 mg A/P Narrative A/P Narrative: Assessment and plan *COVID-19: on room air - supportive care - pt unable to care for self, lives alone *Intermittent fevers: 2/2 above vs Rhabdo likely vs other -obtain BC, check cxr, ua neg *Generalized weakness/deconditioning/downtime on floor for hours: 2/2 above -PT/OT *Rhabdomyolysis: 2/2 above -cpk 8000> 20,000 > 36,200 > 31,900 > 21,500 -cont IVF, monitor ua pH - renal function normal *Metabolic acidosis: 2/2 above *Transaminitis: 2/2 rhabdomyolysis, trend *Hypophosphatemia/Hypocalcemia: Replete cautiously and trend, may have rebound with recovery *Obese: BMI 31 *HLD: On statin for elevated lfts *BPH: Continue tamsulosin *ppx: lovenox Time Spent With Patient Time: Total time spent is greater than 50% in coordination of care (as documented) at patient's floor/unit and/or counseling patient: Subsequent: Total time with patient: 50 - 65 Minutes QUALITY Stroke Symptom Onset Unknown: No VTE Deep Vein Thrombosis/Pulmonary Embolism Present on Admission: No
[2022-07-16] MEDS: ENOXAPARIN 40 MG/0.4 ML SYRINGE SQ SCH (08:27)
[2022-07-16] MEDS: TAMSULOSIN 0.4 MG CAPSULE PO SCH (08:27)
[2022-07-16] MEDS: DOCUSATE SODIUM 100 MG CAPSULE PO SCH ×2 (08:28→20:54)
[2022-07-16] MEDS ORDERED: CALCIUM GLUCONATE 4.65 MEQ in DEXTROSE 5% IN WATER 50 ML IV SCH (09:00)
[2022-07-16] MEDS: SODIUM BICARBONATE 650 MG TABLET PO SCH ×2 (09:14→20:55)
[2022-07-16] MEDS: PHOSPHORUS 250 MG TABLET PO SCH ×4 (09:14→20:54)
[2022-07-16] MEDS: CALCIUM GLUCONATE 4.65 MEQ in 0.9 % SODIUM CHLORIDE 50 ML IV SCH ×2 (10:12→11:26)
--- NOTE | 2022-07-16 10:25 | XRay Report ---
CLINICAL INFORMATION: Fever COMPARISON: 06/17/2015 TECHNIQUE: Portable FINDINGS: The heart size, mediastinum and pulmonary vessels are unremarkable. Minor left basilar atelectasis noted.. There are no effusions. The bones and soft tissues are within normal limits. IMPRESSION: Minor left basilar atelectasis. Interpreted and Authenticated by: Terence Bray 07/16/22
[2022-07-16] MEDS: BENZONATATE 100 MG CAPSULE PO PRN (12:04)
[2022-07-16] MEDS: MELATONIN 3 MG TABLET PO SCH (20:54)
[2022-07-16] MEDS: SENNOSIDES 1 TABLET PO SCH (20:55)
[2022-07-17] MEDS: 0.9 % SODIUM CHLORIDE 1,000 ML IV SCH ×5 (00:03→17:07)
[2022-07-17] MEDS: 0.9 % SODIUM CHLORIDE 10 ML SYRINGE IV SCH ×3 (05:01→20:36)
[2022-07-17 07:26] LABS: ALT/SGPT 228 U/L (<40); AST/SGOT 540 U/L (<40); Albumin 3.2 gm/dL (3.2-5.2); Albumin/Globulin Ratio 1.1 (1.0-2.3); Alkaline Phosphatase 61 U/L (39-117); Bilirubin,Direct < 0.2 mg/dL (0-0.3); Bilirubin,Total 0.4 mg/dL (0.1-1.0); Blood Urea Nitrogen 8 mg/dL (8-23); Calcium 8.4 mg/dL (8.6-10.4); Carbon Dioxide 22 mmol/L (22-30); Chloride 106 mmol/L (96-108); Globulin 2.8 gm/dL (2.2-3.7); Glomerular Filtration Rate 99; Glucose 99 mg/dL (70-105); Lactate Dehydrogenase 687 U/L (135-225); Phosphorous 2.9 mg/dL (2.5-4.5); Triglycerides 102 mg/dL (<150); Uric Acid 2.8 mg/dL (2.5-8.0)
[2022-07-17] MEDS: BENZONATATE 100 MG CAPSULE PO PRN (08:15)
[2022-07-17] MEDS: ACETAMINOPHEN 325 MG TABLET PO PRN (08:16)
[2022-07-17] MEDS: ENOXAPARIN 40 MG/0.4 ML SYRINGE SQ SCH (08:16)
[2022-07-17] MEDS: TAMSULOSIN 0.4 MG CAPSULE PO SCH (08:16)
--- NOTE | 2022-07-17 08:16 | Internal Med Progress Note ---
SUBJECTIVE Subjective Patient information: Note initiated : 07/17/22 at 8:09 am Service Date, if different from initiated Date: [] Patient: Ottoniel Arriaga 72 y/o M admitted on 07/13/22 for Fall/Weakness. Chief Complaint: [] Interval history: Mr. Arriaga is a 72 year old M with BPPV. He arose early on the morning of the day of admission and attempted to sit in a kitchen chair but fell out of the chair. He attempted to get back in the chair and repeatedly fell off. He also reports a sore throat. He remained on the floor for several hours. Workup in the ER was notable for CPK 8,000. Renal function normal. However, COVID is POSITIVE. He is too weak to care for himself and lives alone. Admission was requested. Jul 14, CPK reported as > 20,000. I have asked for a dilution measure to better quantify the actual number. IVF rate has been increased. Pt denies limb pain or numbness. /2 Patient complains of poor sleep. Has a headache. Hypophosphatemia present. Hypocalcemia. Transaminitis #. Elevated CPK greater than 20,000. We will ask for delusional from lab. Continue IV fluids and continue monitoring close urine output. 3/3 Patient says he is feeling a little stronger each day. He was severely weak the first day. His urine is also dark the first day and it is lightening up. CPK still quite elevated. Continue IV hydration and monitoring. Yesterday's CPK was 31,000 down from 36,000 the previous day. Pending today's level. Urine pH at 6.0. Patient did have fevers yesterday morning. 3/4 Patient feeling a little better. CK down to 14,000. Patient has cough this morning. Phosphorus improving. Calcium stable. Transaminitis noted with mildly worsening ALT but mildly improving AST. No peripheral edema at this point. Review of Systems: denies headache/chills/nausea/vomiting/chest or abdominal pain/cough/d yspnea/diarrhea. Otherwise see above. PHYSICAL EXAM: General: Alert, Awake, No acute Distress, obese Eyes/N/T: EOMI, no scleral icterus, Head/Neck: neck supple, CV: RRR, No murmurs, Pulm: Clear b/l, no wheezing/rhonchi/rales, no respiratory distress Abd: soft, nontender, +BS x4 Ext: no clubbing/cyanosis/edema, nontender Neuro: Alert, no focal deficits, moves all extremities, sensations intact b/l upper/lower Psychiatric: Skin: warm/dry, normal color Constitutional Vitals: Vital Signs Temp Pulse Resp BP Pulse Ox O2 Del Method 99.2 F H 70 18 154/87 93 Room Air 07/17/22 07:16 07/17/22 07:16 07/17/22 07:16 07/17/22 07:16 07/17/22 07:16 07/17/22 07:16 Period Temp Pulse Resp BP Sys/Allen Pulse Ox O2 Del Method O2 Flow Rate Last 24 Hr 98.6 F-99.7 F 68-84 16-20 133-154/82-94 91-96 Room Air-Room Air Intake and Output 07/16/22 07/17/22 07/17/22 19:59 03:59 11:59 Intake Total 1730 2909.0909 700 Output Total 1725 3025 1525 Balance 5 -115.9091 -825 Weight 107.728 kg Intake & Output: Intake & Output 07/16/22 07/17/22 07/17/22 19:59 03:59 11:59 Intake Total 1730 2909.0909 700 Output Total 1725 3025 1525 Balance 5 -115.9091 -825 Weight 107.728 kg Intake: IV 1060 1509.0909 Sodium Chloride 0.9% 1,000 ml @ 1000 1000 150 mls/hr IV .[id number] [facility] Rx#: [id number] Calcium Gluconate 4.65 Meq In 60 Sodium Chloride 0.9% 50 ml @ 100 mls/hr IV 1000,1100 [facility] Rx# :[id number] Potassium Phosphate 40 Meq In 509.0909 Dextrose 5% in Water 500 ml @ 50.909 mls/hr IV ONCE [facility] Rx#: [id number] Oral 670 1400 700 Output: Void Amount 1725 3025 1525 Other: Meal Lunch Percent of Meal Consumed 100% Feeding Ability Independent Urine Appearance Clear Clear Clear Urine Color Bright Yellow Yellow Pale Urine Odor Normal Normal # Voids 1 OBJ DATA Labs 07/16/22 06:21 07/17/22 05:44 Labs: Abnormal Lab Results 07/17/22 07/17/22 07/16/22 05:44 05:44 06:21 RBC 4.59 L Hgb 13.0 L Lymph % (Auto) [place] % (Auto) 12.8 H Lymph # (Auto) [place] # (Auto) BUN Creatinine 0.6 L Glucose Calcium 8.4 L Phosphorus AST 540 H ALT 228 H Lactate Dehydrogenase 687 H Total Creatine Kinase 51331 H* Total Protein Albumin Urine Mucus 07/16/22 07/16/22 07/16/22 06:21 06:20 00:27 RBC Hgb Lymph % (Auto) [place] % (Auto) Lymph # (Auto) [place] # (Auto) BUN 7 L Creatinine Glucose 125 H Calcium 7.7 L Phosphorus 1.6 L AST 630 H ALT 209 H Lactate Dehydrogenase 813 H Total Creatine Kinase > 91515 H* Total Protein 5.5 L Albumin 3.1 L Urine Mucus Few A 07/15/22 07/15/22 07/14/22 06:16 06:16 05:12 RBC Hgb Lymph % (Auto) [place] % (Auto) Lymph # (Auto) [place] # (Auto) BUN 7 L Creatinine Glucose Calcium 7.5 L Phosphorus 2.1 L AST 759 H ALT 197 H Lactate Dehydrogenase 1001 H Total Creatine Kinase > 36036 H* > 68096 H* Total Protein 5.8 L Albumin Urine Mucus 07/14/22 05:12 RBC Hgb Lymph % (Auto) 14.8 L [place] % (Auto) 15.8 H Lymph # (Auto) 1.49 L [place] # (Auto) 1.59 H BUN Creatinine Glucose Calcium Phosphorus AST ALT Lactate Dehydrogenase Total Creatine Kinase Total Protein Albumin Urine Mucus Meds: Medications Acetaminophen (Acetaminophen 325 Mg Tablet) 650 mg PO Q6HP PRN; Protocol PRN Reason: Per Pain Protocol/Fever > 101 Last Admin: 07/15/22 21:16 Dose: 650 mg Benzonatate (Benzonatate 100 Mg Capsule) 200 mg PO TIDP PRN PRN Reason: Cough Last Admin: 07/16/22 12:04 Dose: 200 mg Diphenhydramine HCl (Diphenhydramine 25 Mg Capsule) 25 mg PO HSP PRN PRN Reason: Insomnia Docusate Sodium (Docusate Sodium 100 Mg Capsule) 100 mg PO BID [facility] Last Admin: 03/03/23 20:54 Dose: Not Given Enoxaparin Sodium (Enoxaparin 40 Mg/0.4 Ml Syringe) 40 mg SQ DAILY [facility] Last Admin: 07/16/22 08:27 Dose: 40 mg Sodium Chloride (Sodium Chloride 0.9%) 1,000 mls @ 150 mls/hr IV .Q6H40M [facility] Last Admin: 07/17/22 01:32 Dose: 150 mls/hr Melatonin (Melatonin 3 Mg Tablet) 3 mg PO QHS [facility] Last Admin: 07/16/22 20:54 Dose: 3 mg Ondansetron HCl (Ondansetron 4 Mg/2 Ml Vial) 4 mg IV Q6HP PRN PRN Reason: Nausea And Vomiting Senna (Sennosides 1 Tablet) 2 tab PO HS [facility] Last Admin: 07/16/22 20:55 Dose: Not Given Sodium Chloride (0.9 % Sodium Chloride 10 Ml Syringe) 10 ml IV Q8 [facility] Last Admin: 07/17/22 05:01 Dose: Not Given Tamsulosin HCl (Tamsulosin 0.4 Mg Capsule) 0.4 mg PO QDAY [facility] Last Admin: 07/16/22 08:27 Dose: 0.4 mg A/P Narrative A/P Narrative: Assessment and plan *COVID-19: on room air - supportive care - pt unable to care for self, lives alone *Intermittent fevers(resolved): 2/2 above vs Rhabdo likely -BC/UA neg, cxr with mild atelectasis *Generalized weakness/deconditioning/downtime on floor for hours: 2/2 above -PT/OT *Rhabdomyolysis: 2/2 above -cpk 8000> 20,000 > 36,200 > 31,900 > 21,500 > 14,800 -cont IVF until ck <5000, monitor ua pH - renal function normal *Metabolic acidosis: 2/2 above, improving *Transaminitis: 2/2 rhabdomyolysis, trend, alt up & ast down *Hypophosphatemia/Hypocalcemia: Replete cautiously and trend, may have rebound with recovery, improving *Atelectasis: Incentive spirometry *Obese: BMI 31 *HLD: hold statin for elevated lfts *BPH: Continue tamsulosin *ppx: lovenox Time Spent With Patient Time: Total time spent is greater than 50% in coordination of care (as documented) at patient's floor/unit and/or counseling patient: Subsequent: Total time with patient: 35 - 49 minutes QUALITY Stroke Symptom Onset Unknown: No VTE Deep Vein Thrombosis/Pulmonary Embolism Present on Admission: No
[2022-07-17] MEDS: DOCUSATE SODIUM 100 MG CAPSULE PO SCH ×2 (09:43→20:36)
[2022-07-17] MEDS: MELATONIN 3 MG TABLET PO SCH (20:36)
[2022-07-17] MEDS: SENNOSIDES 1 TABLET PO SCH (20:36)
[2022-07-18] MEDS: 0.9 % SODIUM CHLORIDE 1,000 ML IV SCH (01:13)
[2022-07-18] MEDS: 0.9 % SODIUM CHLORIDE 10 ML SYRINGE IV SCH ×3 (06:14→20:09)
[2022-07-18] MEDS: BENZONATATE 100 MG CAPSULE PO PRN (08:19)
[2022-07-18] MEDS: TAMSULOSIN 0.4 MG CAPSULE PO SCH (08:19)
[2022-07-18] MEDS: ACETAMINOPHEN 325 MG TABLET PO PRN (08:20)
[2022-07-18] MEDS: ENOXAPARIN 40 MG/0.4 ML SYRINGE SQ SCH (08:20)
[2022-07-18] MEDS ORDERED: 0.9 % SODIUM CHLORIDE 1,000 ML IV SCH (08:51)
--- NOTE | 2022-07-18 08:51 | Internal Med Progress Note ---
SUBJECTIVE Subjective Patient information: Note initiated : 07/18/22 at 8:49 am Service Date, if different from initiated Date: [] Patient: Ottoniel Arriaga 72 y/o M admitted on 07/13/22 for Fall/Weakness. Chief Complaint: [] Interval history: Mr. Arriaga is a 72 year old M with BPPV. He arose early on the morning of the day of admission and attempted to sit in a kitchen chair but fell out of the chair. He attempted to get back in the chair and repeatedly fell off. He also reports a sore throat. He remained on the floor for several hours. Workup in the ER was notable for CPK 8,000. Renal function normal. However, COVID is POSITIVE. He is too weak to care for himself and lives alone. Admission was requested. Jul 14, CPK reported as > 20,000. I have asked for a dilution measure to better quantify the actual number. IVF rate has been increased. Pt denies limb pain or numbness. 3/2 Patient complains of poor sleep. Has a headache. Hypophosphatemia present. Hypocalcemia. Transaminitis #. Elevated CPK greater than 20,000. We will ask for delusional from lab. Continue IV fluids and continue monitoring close urine output. 3/3 Patient says he is feeling a little stronger each day. He was severely weak the first day. His urine is also dark the first day and it is lightening up. CPK still quite elevated. Continue IV hydration and monitoring. Yesterday's CPK was 31,000 down from 36,000 the previous day. Pending today's level. Urine pH at 6.0. Patient did have fevers yesterday morning. 3/4 Patient feeling a little better. CK down to 14,000. Patient has cough this morning. Phosphorus improving. Calcium stable. Transaminitis noted with mildly worsening ALT but mildly improving AST. No peripheral edema at this point. 3/5 Patient reports poor sleep. Was not given as needed Benadryl last night. Also IV line was keeping him up. CPK down to 7100. Awaiting the rest of today's chemistry. Review of Systems: denies headache/chills/nausea/vomiting/chest or abdominal pain/cough/dyspnea/diarrhea. Otherwise see above. PHYSICAL EXAM: General: Alert, Awake, No acute Distress, obese Eyes/N/T: EOMI, no scleral icterus, Head/Neck: neck supple, CV: RRR, No murmurs, Pulm: Clear b/l, no wheezing/rhonchi/rales, no respiratory distress Abd: soft, nontender, +BS x4 Ext: no clubbing/cyanosis/edema, nontender Neuro: Alert, no focal deficits, moves all extremities, sensations intact b/l upper/lower Psychiatric: Skin: warm/dry, normal color Constitutional Vitals: Vital Signs Temp Pulse Resp BP Pulse Ox O2 Del Method 98.7 F 70 16 137/92 93 Room Air 07/18/22 07:13 07/18/22 07:13 07/18/22 07:13 07/18/22 07:13 07/18/22 07:13 07/18/22 07:13 Period Temp Pulse Resp BP Sys/Allen Pulse Ox O2 Del Method O2 Flow Rate Last 24 Hr 98.2 F-99.3 F 65-70 16-18 131-146/67-94 93-95 Room Air-Room Air Intake and Output 07/17/22 07/18/22 07/18/22 19:59 03:59 11:59 Intake Total 2654 2280 Output Total 970 1550 1200 Balance 1684 730 -1200 Weight 107.501 kg Intake & Output: Intake & Output 07/17/22 07/18/22 07/18/22 19:59 03:59 11:59 Intake Total 2654 2280 Output Total 970 1550 1200 Balance 1684 730 -1200 Weight 107.501 kg Intake: IV 1694 1000 Sodium Chloride 0.9% 1,000 ml @ 1694 1000 125 mls/hr IV .Q8H [facility] Rx#: [id number] Oral 960 1280 Output: Void Amount 970 1550 1200 Other: Meal Lunch Percent of Meal Consumed 100% Urine Appearance Clear Clear Urine Color Yellow Yellow OBJ DATA Labs 07/16/22 06:21 07/18/22 05:41 Labs: Abnormal Lab Results 07/18/22 07/17/22 07/17/22 05:41 05:44 05:44 RBC Hgb [place] % (Auto) BUN Creatinine 0.6 L Glucose Calcium 8.4 L Phosphorus AST 540 H ALT 228 H Lactate Dehydrogenase 687 H Total Creatine Kinase 7132 H 51794 H* Total Protein Albumin Urine Mucus 07/16/22 07/16/22 07/16/22 06:21 06:21 06:20 RBC 4.59 L Hgb 13.0 L [place] % (Auto) 12.8 H BUN 7 L Creatinine Glucose 125 H Calcium 7.7 L Phosphorus 1.6 L AST 630 H ALT 209 H Lactate Dehydrogenase 813 H Total Creatine Kinase > 22319 H* Total Protein 5.5 L Albumin 3.1 L Urine Mucus 07/16/22 00:27 RBC Hgb [place] % (Auto) BUN Creatinine Glucose Calcium Phosphorus AST ALT Lactate Dehydrogenase Total Creatine Kinase Total Protein Albumin Urine Mucus Few A Meds: Medications Acetaminophen (Acetaminophen 325 Mg Tablet) 650 mg PO Q6HP PRN; Protocol PRN Reason: Per Pain Protocol/Fever > 101 Last Admin: 07/18/22 08:20 Dose: 650 mg Benzonatate (Benzonatate 100 Mg Capsule) 200 mg PO TIDP PRN PRN Reason: Cough Last Admin: 07/18/22 08:19 Dose: 200 mg Diphenhydramine HCl (Diphenhydramine 25 Mg Capsule) 25 mg PO HSP PRN PRN Reason: Insomnia Docusate Sodium (Docusate Sodium 100 Mg Capsule) 100 mg PO BID [facility] Last Admin: 07/17/22 20:36 Dose: Not Given Enoxaparin Sodium (Enoxaparin 40 Mg/0.4 Ml Syringe) 40 mg SQ DAILY [facility] Last Admin: 07/18/22 08:20 Dose: 40 mg Sodium Chloride (Sodium Chloride 0.9%) 1,000 mls @ 125 mls/hr IV .Q8H [facility] Last Admin: 07/18/22 01:13 Dose: 125 mls/hr Melatonin (Melatonin 3 Mg Tablet) 3 mg PO QHS [facility] Last Admin: 07/17/22 20:36 Dose: 3 mg Ondansetron HCl (Ondansetron 4 Mg/2 Ml Vial) 4 mg IV Q6HP PRN PRN Reason: Nausea And Vomiting Senna (Sennosides 1 Tablet) 2 tab PO HS [facility] Last Admin: 07/17/22 20:36 Dose: 2 tab Sodium Chloride (0.9 % Sodium Chloride 10 Ml Syringe) 10 ml IV Q8 [facility] Last Admin: 07/18/22 06:14 Dose: Not Given Tamsulosin HCl (Tamsulosin 0.4 Mg Capsule) 0.4 mg PO QDAY [facility] Last Admin: 07/18/22 08:19 Dose: 0.4 mg A/P Narrative A/P Narrative: Assessment and plan *COVID-19: on room air - supportive care - pt unable to care for self, lives alone *Intermittent fevers(resolved): 2/2 above vs Rhabdo likely -BC/UA neg, cxr with mild atelectasis (IS) *Generalized weakness/deconditioning/downtime on floor for hours: 2/2 above -PT/OT *Rhabdomyolysis: 2/2 above -cpk 8000> 20,000 > 36,200 > 31,900 > 21,500 > 14,800 > 7100 -cont IVF (decrease) until ck <5000, monitor ua pH - renal function normal *Metabolic acidosis: 2/2 above, improving *Transaminitis: 2/2 rhabdomyolysis, trend, *Hypophosphatemia/Hypocalcemia: Replete cautiously and trend, may have rebound with recovery, improving *Atelectasis: Incentive spirometry *Obese: BMI 31 *HLD: hold statin for elevated lfts *BPH: Continue tamsulosin *ppx: lovenox Time Spent With Patient Time: Total time spent is greater than 50% in coordination of care (as documented) at patient's floor/unit and/or counseling patient: Subsequent: Total time with patient: 35 - 49 minutes QUALITY Stroke Symptom Onset Unknown: No VTE Deep Vein Thrombosis/Pulmonary Embolism Present on Admission: No
[2022-07-18] MEDS: DOCUSATE SODIUM 100 MG CAPSULE PO SCH ×2 (09:30→20:09)
[2022-07-18 11:16] LABS: ALT/SGPT 271 U/L (<40); AST/SGOT 413 U/L (<40); Albumin 3.3 gm/dL (3.2-5.2); Albumin/Globulin Ratio 1.1 (1.0-2.3); Alkaline Phosphatase 69 U/L (39-117); Bilirubin,Direct < 0.2 mg/dL (0-0.3); Bilirubin,Total 0.4 mg/dL (0.1-1.0); Blood Urea Nitrogen 11 mg/dL (8-23); Calcium 8.6 mg/dL (8.6-10.4); Carbon Dioxide 23 mmol/L (22-30); Chloride 106 mmol/L (96-108); Glomerular Filtration Rate 93; Glucose 103 mg/dL (70-105); Lactate Dehydrogenase 506 U/L (135-225); Phosphorous 2.3 mg/dL (2.5-4.5); Triglycerides 179 mg/dL (<150); Uric Acid 3.1 mg/dL (2.5-8.0)
--- NOTE | 2022-07-18 12:07 | Discharge Summary ---
Discharge Provider Provider IMPORTANT FOLLOW-UP INFORMATION FOR PCP: Patient information: Note initiated : 07/18/22 at 12:06 pm Service Date, if different from initiated Date: [] Patient: Ottoniel Arriaga 72 y/o M admitted on 07/13/22 for Fall/Weakness. Chief Complaint: [] Date of admission: 07/13/22 20:52 Discharge date: 07/19/22 Primary care physician: Ankit Moscoso MD COURSE Hospital Course Hospital course: Interval history: Mr. Arriaga is a 72 year old M with BPPV. He arose early on the morning of the day of admission and attempted to sit in a kitchen chair but fell out of the chair. He attempted to get back in the chair and repeatedly fell off. He also reports a sore throat. He remained on the floor for several hours. Workup in the ER was notable for CPK 8,000. Renal function normal. However, COVID is POSITIVE. He is too weak to care for himself and lives alone. Admission was requested. Jul 14, CPK reported as > 20,000. I have asked for a dilution measure to better quantify the actual number. IVF rate has been increased. Pt denies limb pain or numbness. 3/2 Patient complains of poor sleep. Has a headache. Hypophosphatemia present. Hypocalcemia. Transaminitis #. Elevated CPK greater than 20,000. We will ask for delusional from lab. Continue IV fluids and continue monitoring close urine output. 3/ Patient says he is feeling a little stronger each day. He was severely weak the first day. His urine is also dark the first day and it is lightening up. CPK still quite elevated. Continue IV hydration and monitoring. Yesterday's CPK was 31,000 down from 36,000 the previous day. Pending today's level. Urine pH at 6.0. Patient did have fevers yesterday morning. 3/4 Patient feeling a little better. CK down to 14,000. Patient has cough this morning. Phosphorus improving. Calcium stable. Transaminitis noted with mildly worsening ALT but mildly improving AST. No peripheral edema at this point. 35 Patient reports poor sleep. Was not given as needed Benadryl last night. Also IV line was keeping him up. CPK down to 7100. Awaiting the rest of today's chemistry. 3/6 Patient feeling better. Today more ambulatory. CPK down to 3000. IV fluids DC'd. Continue work with PT OT. Assessment and plan *COVID-19: on room air - supportive care *Intermittent fevers(resolved): 2/2 above vs Rhabdo likely -BC/UA neg, cxr with mild atelectasis (IS) *Generalized weakness/deconditioning/downtime on floor for hours: 2/2 above -PT/OT *Rhabdomyolysis: 2/2 above *Metabolic acidosis: 2/2 above, *Transaminitis: 2/2 rhabdomyolysis, *Hypophosphatemia/Hypocalcemia: *Atelectasis: Incentive spirometry *Obese: BMI 31 *HLD: hold statin for elevated lfts *BPH: Continue tamsulosin Discharge diagnosis: Rhabdomyolysis COVID generalized weakness deconditioning Secondary discharge diagnosis: Metabolic acidosis transaminitis electrolyte disturbance atelectasis obesity hyperlipidemia BPH Time Spent with Patient Time attestation: Total time spent providing and/or coordinating discharge services: Time spent: Greater than 30 minutes EXAM Constitutional Vitals: Temp Pulse Resp BP Pulse Ox O2 Del Method 98.6 F 78 18 150/89 96 Room Air 07/18/22 11:57 07/18/22 11:57 07/18/22 11:57 07/18/22 11:57 07/18/22 11:57 07/18/22 11:57 Discharge Data Data Completed and Pending Labs on day of discharge: Labs from last 24 hours 07/18/22 07/18/22 07/18/22 10:25 05:41 05:41 Sodium 139 TNP Potassium 3.7 TNP Chloride 106 TNP Carbon Dioxide 23 TNP Anion Gap 10.0 TNP BUN 11 TNP Creatinine 0.7 TNP GFR Calculation 93 TNP Glucose 103 TNP Uric Acid 3.1 TNP Calcium 8.6 TNP Phosphorus 2.3 L TNP Magnesium 1.9 TNP Total Bilirubin 0.4 TNP Direct Bilirubin < 0.2 Pending GGT 23 TNP AST 413 H TNP ALT 271 H TNP Alkaline Phosphatase 69 TNP Lactate Dehydrogenase 506 H TNP Total Creatine Kinase 7132 H Total Protein 6.3 TNP Albumin 3.3 TNP Globulin 3.0 TNP Albumin/Globulin Ratio 1.1 TNP Triglycerides 179 H TNP Preliminary micro results at discharge 07/16/22 09:32 Blood Culture - Preliminary Blood 07/16/22 09:15 Blood Culture - Preliminary Blood Discharge Plan Patient/Caregiver Discharge Instructions Activity: increase activity as tolerated Diet: Regular Diet Prescriptions: Continued tamsulosin 0.4 mg capsule 0.4 mg PO QDAY Qty: 30 5RF Restasis 0.05 % dropperette 1 drp ophthalmic (eye) DAILY Patient Comments: [NO ORIGINAL SIG] rizatriptan 10 mg tablet,disintegrating 10 mg PO .COMPLEX Qty: 12 1RF Rx Instructions: 10 mg PO at onset of headache; may repeat 1 tablet 2 hours later if needed No Action atorvastatin 20 mg tablet 20 mg PO QDAY Qty: 90 3RF Follow Up Plan Follow up with: Ankit Moscoso MD [Primary Care Provider] - Patient Disposition: Xfer Assisted Living Facility Prognosis: Fair Rehab Potential: Fair I certify that the patient requires SNF services: Yes Overall status at discharge: patient is progressing back to baseline Discharge Orders: Discharge Order (Routine); Ordered 07/19/22 Ordered By: Lyle Mckeon [facility] VTE Deep Vein Thrombosis/Pulmonary Embolism Present on Admission: No
[2022-07-18] MEDS: diphenhydrAMINE 25 MG CAPSULE PO PRN (20:09)
[2022-07-18] MEDS: MELATONIN 3 MG TABLET PO SCH (20:09)
[2022-07-18] MEDS: SENNOSIDES 1 TABLET PO SCH (20:09)
[2022-07-19] MEDS: ENOXAPARIN 40 MG/0.4 ML SYRINGE SQ SCH (08:17)
[2022-07-19] MEDS: TAMSULOSIN 0.4 MG CAPSULE PO SCH (08:17)
[2022-07-19] MEDS: DOCUSATE SODIUM 100 MG CAPSULE PO SCH ×2 (08:17→21:19)
[2022-07-19] MEDS: 0.9 % SODIUM CHLORIDE 10 ML SYRINGE IV SCH ×3 (08:17→21:21)
[2022-07-19 08:44] LABS: Creatine Kinase 2898 U/L (24-195)
--- NOTE | 2022-07-19 10:32 | Internal Med Progress Note ---
SUBJECTIVE Subjective Patient information: Note initiated : 07/19/22 at 10:31 am Service Date, if different from initiated Date: [] Patient: Ottoniel Arriaga 72 y/o M admitted on 07/13/22 for Fall/Weakness. Chief Complaint: [] Interval history: Mr. Arriaga is a 72 year old M with BPPV. He arose early on the morning of the day of admission and attempted to sit in a kitchen chair but fell out of the chair. He attempted to get back in the chair and repeatedly fell off. He also reports a sore throat. He remained on the floor for several hours. Workup in the ER was notable for CPK 8,000. Renal function normal. However, COVID is POSITIVE. He is too weak to care for himself and lives alone. Admission was requested. Jul 14, CPK reported as > 20,000. I have asked for a dilution measure to better quantify the actual number. IVF rate has been increased. Pt denies limb pain or numbness. 07/15 Patient complains of poor sleep. Has a headache. Hypophosphatemia present. Hypocalcemia. Transaminitis #. Elevated CPK greater than 20,000. We will ask for delusional from lab. Continue IV fluids and continue monitoring close urine output. 3 Patient says he is feeling a little stronger each day. He was severely weak the first day. His urine is also dark the first day and it is lightening up. CPK still quite elevated. Continue IV hydration and monitoring. Yesterday's CPK was 31,000 down from 36,000 the previous day. Pending today's level. Urine pH at 6.0. Patient did have fevers yesterday morning. 3/4 Patient feeling a little better. CK down to 14,000. Patient has cough this morning. Phosphorus improving. Calcium stable. Transaminitis noted with mildly worsening ALT but mildly improving AST. No peripheral edema at this point. 07/18 Patient reports poor sleep. Was not given as needed Benadryl last night. Also IV line was keeping him up. CPK down to 7100. Awaiting the rest of today's chemistry. / Patient feeling better. Today more ambulatory. CPK down to 3000. IV fluids DC'd. Continue work with PT OT. Review of Systems: denies headache/chills/nausea/vomiting/chest or abdominal pain/cough/dyspnea/alexx rrhea. Otherwise see above. PHYSICAL EXAM: General: Alert, Awake, No acute Distress, obese Eyes/N/T: EOMI, no scleral icterus, Head/Neck: neck supple, CV: RRR, No murmurs, Pulm: Clear b/l, no wheezing/rhonchi/rales, no respiratory distress Abd: soft, nontender, +BS x4 Ext: no clubbing/cyanosis/edema, nontender Neuro: Alert, no focal deficits, moves all extremities, sensations intact b/l upper/lower Psychiatric: Skin: warm/dry, normal color Constitutional Vitals: Vital Signs Temp Pulse Resp BP Pulse Ox O2 Del Method 98 F 70 20 134/95 93 Room Air 07/19/22 08:51 07/19/22 08:51 07/19/22 08:51 07/19/22 08:51 07/19/22 08:51 07/19/22 03:46 Period Temp Pulse Resp BP Sys/Allen Pulse Ox O2 Del Method O2 Flow Rate Last 24 Hr 97.4 F-98.6 F 70-80 16-20 133-150/80-95 93-96 Room Air-Room Air Intake and Output 07/18/22 07/19/22 07/19/22 19:59 03:59 11:59 Intake Total 2680 1450 Output Total 1450 1350 Balance 1230 100 Weight 107.864 kg Intake & Output: Intake & Output 07/18/22 07/19/22 07/19/22 19:59 03:59 11:59 Intake Total 2680 1450 Output Total 1450 1350 Balance 1230 100 Weight 107.864 kg Intake: IV 1000 Sodium Chloride 0.9% 1,000 ml @ 1000 75 mls/hr IV .[id number] [facility] Rx#: [id number] Oral 1680 1450 Output: Void Amount 1450 1350 Other: Meal Dinner Percent of Meal Consumed 100% Feeding Ability Independent Urine Appearance Clear Clear Urine Color Pale Yellow Stool Color Brown Stool Consistency Soft # Bowel Movements 1 OBJ DATA Labs 07/16/22 06:21 07/18/22 10:25 Labs: Abnormal Lab Results 07/19/22 07/18/22 07/18/22 06:09 10:25 05:41 Creatinine Calcium Phosphorus 2.3 L AST 413 H ALT 271 H Lactate Dehydrogenase 506 H Total Creatine Kinase 2898 H 7132 H Triglycerides 179 H 07/17/22 07/17/22 05:44 05:44 Creatinine 0.6 L Calcium 8.4 L Phosphorus AST 540 H ALT 228 H Lactate Dehydrogenase 687 H Total Creatine Kinase 87049 H* Triglycerides Meds: Medications Acetaminophen (Acetaminophen 325 Mg Tablet) 650 mg PO Q6HP PRN; Protocol PRN Reason: Per Pain Protocol/Fever > 101 Last Admin: 07/18/22 08:20 Dose: 650 mg Benzonatate (Benzonatate 100 Mg Capsule) 200 mg PO TIDP PRN PRN Reason: Cough Last Admin: 07/18/22 08:19 Dose: 200 mg Diphenhydramine HCl (Diphenhydramine 25 Mg Capsule) 25 mg PO HSP PRN PRN Reason: Insomnia Last Admin: 07/18/22 20:09 Dose: 25 mg Docusate Sodium (Docusate Sodium 100 Mg Capsule) 100 mg PO BID [facility] Last Admin: 07/19/22 08:17 Dose: 100 mg Enoxaparin Sodium (Enoxaparin 40 Mg/0.4 Ml Syringe) 40 mg SQ DAILY [facility] Last Admin: 07/19/22 08:17 Dose: 40 mg Melatonin (Melatonin 3 Mg Tablet) 3 mg PO QHS [facility] Last Admin: 07/18/22 20:09 Dose: 3 mg Ondansetron HCl (Ondansetron 4 Mg/2 Ml Vial) 4 mg IV Q6HP PRN PRN Reason: Nausea And Vomiting Senna (Sennosides 1 Tablet) 2 tab PO HS [facility] Last Admin: 07/18/22 20:09 Dose: 2 tab Sodium Chloride (0.9 % Sodium Chloride 10 Ml Syringe) 10 ml IV Q8 [facility] Last Admin: 07/19/22 08:17 Dose: 10 ml Tamsulosin HCl (Tamsulosin 0.4 Mg Capsule) 0.4 mg PO QDAY [facility] Last Admin: 07/19/22 08:17 Dose: 0.4 mg A/P Narrative A/P Narrative: Assessment and plan *COVID-19: on room air - supportive care - pt unable to care for self, lives alone *Intermittent fevers(resolved): 2/2 above vs Rhabdo likely -BC/UA neg, cxr with mild atelectasis (IS) *Generalized weakness/deconditioning/downtime on floor for hours: 2/2 above -PT/OT *Rhabdomyolysis: 2/2 above -cpk 8000> 20,000 > 36,200 > 31,900 > 21,500 > 14,800 > 7100 > 2900 -d/c IVF - renal function normal *Metabolic acidosis: 2/2 above, improving *Transaminitis: 2/2 rhabdomyolysis, trend, *Hypophosphatemia/Hypocalcemia: Replete cautiously and trend, may have rebound with recovery, improving *Atelectasis: Incentive spirometry *Obese: BMI 31 *HLD: hold statin for elevated lfts *BPH: Continue tamsulosin *ppx: lovenox Time Spent With Patient Time: Total time spent is greater than 50% in coordination of care (as documented) at patient's floor/unit and/or counseling patient: QUALITY Stroke Symptom Onset Unknown: No VTE Deep Vein Thrombosis/Pulmonary Embolism Present on Admission: No
[2022-07-19] MEDS: ACETAMINOPHEN 325 MG TABLET PO PRN (19:46)
[2022-07-19] MEDS: diphenhydrAMINE 25 MG CAPSULE PO PRN (21:18)
[2022-07-19] MEDS: SENNOSIDES 1 TABLET PO SCH (21:18)
[2022-07-19] MEDS: MELATONIN 3 MG TABLET PO SCH (21:19)
[2022-07-19] MEDS: BENZONATATE 100 MG CAPSULE PO PRN (21:23)
[2022-07-20] MEDS: ENOXAPARIN 40 MG/0.4 ML SYRINGE SQ SCH (08:24)
[2022-07-20] MEDS: DOCUSATE SODIUM 100 MG CAPSULE PO SCH (08:24)
[2022-07-20] MEDS: TAMSULOSIN 0.4 MG CAPSULE PO SCH (08:24)
--- NOTE | 2022-07-20 10:49 | Discharge Summary ---
Discharge Provider Provider IMPORTANT FOLLOW-UP INFORMATION FOR PCP: Patient information: Note initiated : 07/20/22 at 10:47 am Service Date, if different from initiated Date: [] Patient: Ottoniel Arriaga 72 y/o M admitted on 07/13/22 for Fall/Weakness. Chief Complaint: [] Date of admission: 07/13/22 20:52 Discharge date: 07/20/22 Primary care physician: Ankit Moscoso MD Consults: 07/19/22 14:02 Consult to Physician [CONS] Routine Comment: snf referral Consulting Provider: [facility] Anca Reason For Exam: Physician to Consult COURSE Hospital Course Hospital course: Mr. Arriaga is a 72 year old M with BPPV. He arose early on the morning of the day of admission and attempted to sit in a kitchen chair but fell out of the chair. He attempted to get back in the chair and repeatedly fell off. He also reports a sore throat. He remained on the floor for several hours. Workup in the ER was notable for CPK 8,000. Renal function normal. However, COVID is POSITIVE. He is too weak to care for himself and lives alone. Admission was requested. Jul 1, CPK reported as > 20,000. I have asked for a dilution measure to better quantify the actual number. IVF rate has been increased. Pt denies limb pain or numbness. 3/2 Patient complains of poor sleep. Has a headache. Hypophosphatemia present. Hypocalcemia. Transaminitis #. Elevated CPK greater than 20,000. We will ask for delusional from lab. Continue IV fluids and continue monitoring close urine output. 3/3 Patient says he is feeling a little stronger each day. He was severely weak the first day. His urine is also dark the first day and it is lightening up. CPK still quite elevated. Continue IV hydration and monitoring. Yesterday's CPK was 31,000 down from 36,000 the previous day. Pending today's level. Urine pH at 6.0. Patient did have fevers yesterday morning. 3/4 Patient feeling a little better. CK down to 14,000. Patient has cough this morning. Phosphorus improving. Calcium stable. Transaminitis noted with mildly worsening ALT but mildly improving AST. No peripheral edema at this point. 3/5 Patient reports poor sleep. Was not given as needed Benadryl last night. Also IV line was keeping him up. CPK down to 7100. Awaiting the rest of today's chemistry. 07/19 Patient feeling better. Today more ambulatory. CPK down to 3000. IV fluids DC'd. Continue work with PT OT. 07/20 Stable overnight, the patient was excepted to low intensity rehab. Discharged for rehab, holding the patient's atorvastatin at discharge given the elevated CK levels and LFTs which are downtrending. Recommend the patient's primary care provider recheck LFTs and CK at follow-up. The patient's atorvastatin can be likely be resumed at that time. Physical exam Head: Atraumatic, normal inspection. Eyes: normal appearance, no scleral icterus. Neck: full ROM Respiratory: no respiratory distress. Cardiovascular: normal rate and rhythm, S1, S2. GI/Abdominal: soft, nontender, no guarding. Extremities: full range of motion, nontender. Neurological: CN II-XII intact, intact motor, intact sensation. Psychiatric: normal mood. Skin: warm, normal color Discharge diagnosis: COVID 19 Secondary discharge diagnosis: Generalized weakness Rhabdomyolysis Transaminitis Time Spent with Patient Time attestation: Total time spent providing and/or coordinating discharge services: Time spent: Greater than 30 minutes EXAM Constitutional Vitals: Temp Pulse Resp BP Pulse Ox O2 Del Method O2 Flow Rate 97.5 F 78 18 117/86 93 Room Air 0 07/20/22 08:00 07/20/22 08:00 07/20/22 08:00 07/20/22 08:00 07/20/22 08:00 07/20/22 08:00 07/20/22 04:00 Discharge Data Data Completed and Pending Labs on day of discharge: Preliminary micro results at discharge 07/16/22 09:32 Blood Culture - Preliminary Blood 07/16/22 09:15 Blood Culture - Preliminary Blood Discharge Plan Patient/Caregiver Discharge Instructions Activity: increase activity as tolerated Diet: Regular Diet Prescriptions: Continued tamsulosin 0.4 mg capsule 0.4 mg PO QDAY Qty: 30 5RF Restasis 0.05 % dropperette 1 drp ophthalmic (eye) DAILY Patient Comments: [NO ORIGINAL SIG] rizatriptan 10 mg tablet,disintegrating 10 mg PO .COMPLEX Qty: 12 1RF Rx Instructions: 10 mg PO at onset of headache; may repeat 1 tablet 2 hours later if needed Discontinued atorvastatin 20 mg tablet 20 mg PO QDAY Qty: 90 3RF Follow Up Plan Follow up with: Ankit Moscoso MD [Primary Care Provider] - Patient Disposition: Xfer SNF Prognosis: Fair Rehab Potential: Fair I certify that the patient requires SNF services: Yes Overall status at discharge: patient is progressing back to baseline Discharge Orders: Discharge Order (Routine); Ordered 07/19/22 Ordered By: Lyle Mckeon [facility] VTE Deep Vein Thrombosis/Pulmonary Embolism Present on Admission: No
== END 2022-07-20 13:10 | DRG 178 ==
LOC: ED 13:09 → MEDSUR 20:52
PROVIDERS: ADMIT Internal Medicine; ATTEND Internal Medicine